=== PATIENT | male | born 1990 | race Caucasian/White ===

== ENCOUNTER 2017-04-02 22:38 | Observation (INO) | payer SELFPAY ==
[~2017-04-02] VITALS: Ht 180.3 cm; Wt 90.0 kg
--- NOTE | ~2017-04-02 | EC ---
PATIENT:SHONDA FINN DATE OF SERVICE: 04/03/17 SEX: M MEDICAL RECORD: [id number] DATE OF : [birth year] LOCATION:D.M2 D.212 AGE OF PATIENT: 26 ADMISSION DATE: 04/03/17 REFERRING PHYSICIAN: INTERPRETING PHYSICIAN: LUZ ORELLANA MD ECHOCARDIOGRAM REPORT ECHO CHARGES 4 ECHO COMPLETE CLINICAL DIAGNOSIS: CHEST PAIN ECHOCARDIOGRAPHIC MEASUREMENTS (adult normal given) AC root (d.<3.7cm) 3.6 LV Septum d (<1.2 cm> 1.3 Valve Excursion 2.3 LV Septum (systole) 1.5 Left Atria (s.<4.0cm> 3.6 LVPW d(<1.2cm) 1.5 RV (d.<2.3cm) 4.3 LVPW (sytole) 1.9 LV diastole(<5.6CM) 4.0 MV E-F(>70mm/sec) LV systole 2.5 LVOT Diameter 2.3 MV exc.(>10mm) 2.0 Est.ejection fraction (50-75%) Pericardial Effusion N DOPPLER: LVIT A 55.0 E 88.0 LA RVSP 23 LVOT 85 AOP1/2T Asc. Ao 106 RVOT 71 RA PA 120 AV Gradient Peak 4.49 AV Mean 2.51 AV Area 3.5 MV Gradient Peak 5.05 MV Mean 1.40 MV Area COMMENTS: Traffic Recorder: Chan MILLER [employer] Repairer:Mona Orellana TAPE# PACS DATE OF SERVICE: 04/03/2017 FINDINGS: 1. Left ventricular chamber size is within normal limits. Left ventricular systolic function is normal. Overall ejection fraction estimated at 60%. 2. Left atrium is within normal limits at 3.6 cm. Right atrium and right ventricular chamber sizes are mildly dilated. 3. Valvular structures have normal structure and motion. 4. Doppler interrogation reveals trace mitral regurgitation, mild tricuspid regurgitation, no other valvular insufficiency or stenosis and pulmonary ECHOCARDIOGRAM REPORT [id number] SHONDA FINN systolic pressure is normal, estimated at 23 mmHg. 5. No evidence of pericardial effusion or left ventricular thrombus. TRANSINT:[id number] Voice Confirmation ID: [id number] DOCUMENT ID: [id number] LUZ ORELLANA MD CC: [id number] DICTATION DATE: 04/03/17 1216 [employer] REPRESENTATIVE: 04/04/17 0037 DIS IN 04/03/17 [facility] [address] [place] [address]
[2017-04-02 23:46] LABS: BASOPHILS 0.1 % (0-2); EOSINOPHILS 3.2 % (0-7); HEMATOCRIT 44.5 % (42.0-54.0); IMMATURE GRANULOCYTES 0.2 % (0-5); LYMPHOCYTES 32.7 % (15-50); MCH 31.1 pg (26.0-34.0); MCHC 33.7 g/dL (31.0-37.0); MCV 92.1 fL (80.0-100.0); MEAN PLATELET VOLUME 10.4 fL (7.4-10.4); MONOCYTES 6.4 % (2-11); NEUTROPHILS 57.4 % (40-80); PLATELET COUNT 241 10x3/uL (130-400); RBC 4.83 10x6/uL (4.20-6.10); WBC 10.5 10x3/uL (4.8-10.8)
[2017-04-03] LABS: ALBUMIN 4.2 g/dL (3.4-5.0); ALKALINE PHOSPHATASE 79 U/L (46-116); ALT (SGPT) 27 U/L (10-68); CALC OSMOLALITY 289 mosm/kg (275-300); CALCIUM 8.9 mg/dL (8.5-10.1); CARBON DIOXIDE 31.9 mmol/L (21.0-32.0); CHLORIDE - SERUM 105 mmol/L (98-107); CREATININE - SERUM 1.3 mg/dL (0.6-1.3); GLUCOSE 116 mg/dL (74-106); PROTEIN - SERUM 7.5 g/dL (6.4-8.2); SODIUM 144 mmol/L (136-145); UREA NITROGEN 17 mg/dL (7-18); eGFR NON AFRICAN AMERICAN 71 mL/min (90-120)
[2017-04-03 00:03] LABS: CREATINE KINASE 66 UL (21-232); TROPONIN-I < 0.017 ng/mL (0.000-0.060)
--- NOTE | 2017-04-03 02:20 | NUR ---
RECEIVED PT TO ROOM 2122 ALERT O X3. ASSESS AND HISTORY COMPLETE. MEDS REVIEWED AND UPDATED MED REC FOR MD REVIEW IN AM. PT DENIES CP OR SOB AT THIS TIME.
[2017-04-03] MEDS ORDERED: AMOXICILLIN875 MG PO (02:26)
[2017-04-03] MEDS ORDERED: BUSPAR 15 MG TA15 MG PO (02:26)
[2017-04-03] MEDS ORDERED: OMEPRAZOLE20 M1 PO (02:27)
[2017-04-03 02:31] VITALS: Ht 180.3 cm; Wt 90.0 kg
[2017-04-03 04:01] VITALS: BP 122/67
[2017-04-03 05:11] LABS: CKMB 0.4 U/L (0.0-3.6); CREATINE KINASE 65 UL (21-232)
[2017-04-03 05:12] LABS: TROPONIN-I < 0.017 ng/mL (0.000-0.060)
--- NOTE | 2017-04-03 05:25 | NUR ---
RESTING WELL WITH EYES CLOSED, CONT TO MONITOR.
--- NOTE | 2017-04-03 07:31 | NUR ---
ASSESSMENT DONE. DENIES NEEDS.
[2017-04-03 08:26] VITALS: BP 119/76
--- NOTE | 2017-04-03 09:31 | NUR ---
AMPARO NEEDS AT THIS TIME. CALL LIGHT IN REACH. WILL MONITOR.
[2017-04-03 11:12] LABS: CKMB 0.4 U/L (0.0-3.6); CREATINE KINASE 63 UL (21-232)
[2017-04-03 11:15] LABS: TROPONIN-I < 0.017 ng/mL (0.000-0.060)
[2017-04-03] MEDS ORDERED: PROTONIX20 MG PO (14:36)
--- NOTE | 2017-04-03 16:11 | NUR ---
DC GIVEN TO PT
--- NOTE | 2017-04-03 17:12 | NUR ---
DC HOME PER PERSONAL CAR
== END 2017-04-03 17:12 | disposition home or self-care (01) ==
LOC: D.ER 22:38 → D.M2 04-03 01:20 → OBSVTIME 04-03 01:20 → D.M2 04-03 01:20
PROVIDERS: Family Medicine; ADMIT Family Medicine
DX: R07.89 Other chest pain (principal); R00.2 Palpitations; K21.9 Gastro-esophageal reflux disease without esophagitis; I10 Essential (primary) hypertension; R10.13 Epigastric pain; Z87.891 Personal history of nicotine dependence

== ENCOUNTER 2017-05-17 03:43 | Emergency (ER) | payer MEDICAID ==
[2017-04-03 02:31] VITALS: BMI 27.6
[~2017-05-17 03:43] MED LIST: AMOXICILLIN875 MG PO; BUSPAR 15 MG TA15 MG PO; OMEPRAZOLE20 M1 PO; PROTONIX20 MG PO
[2017-05-17 04:17] LABS: APPEARANCE CLEAR (CLEAR); BILIRUBIN NEGATIVE (NEGATIVE); COLOR YELLOW (YELLOW); GLUCOSE NEGATIVE (NEGATIVE); KETONE NEGATIVE (NEGATIVE); LEUKOCYTE ESTERASE NEGATIVE (NEGATIVE); NITRITE NEGATIVE (NEGATIVE); PROTEIN NEGATIVE (NEGATIVE); SPECIFIC GRAVITY 1.025 (1.005-1.020); UROBILINOGEN NORMAL (NORMAL)
[2017-05-17 04:18] LABS: BACTERIA FEW /hpf (NONE SEEN); EPITHELIAL CELLS 0-5 /hpf (0-5); RED CELLS - URINE 0-5 /hpf (0-5); WHITE CELLS - URINE 0-5 /hpf (0-5)
[2017-05-17 04:29] LABS: BASOPHILS 0.3 % (0-2); HEMATOCRIT 40.4 % (42.0-54.0); HEMOGLOBIN 13.3 g/dL (13.5-17.5); IMMATURE GRANULOCYTES 0.1 % (0-5); LYMPHOCYTES 34.6 % (15-50); MCH 30.2 pg (26.0-34.0); MCHC 32.9 g/dL (31.0-37.0); MCV 91.8 fL (80.0-100.0); MONOCYTES 6.1 % (2-11); NEUTROPHILS 53.9 % (40-80); PLATELET COUNT 189 10x3/uL (130-400); RDW 12.1 % (11.5-14.5)
[2017-05-17 04:44] LABS: ALBUMIN 3.6 g/dL (3.4-5.0); ANION GAP 11.2 mmol/L (8-16); BILIRUBIN - TOTAL 0.26 mg/dL (0.2-1.3); CALCIUM 8.9 mg/dL (8.5-10.1); CARBON DIOXIDE 27.3 mmol/L (21.0-32.0); CREATININE - SERUM 1.3 mg/dL (0.6-1.3); POTASSIUM - SERUM 3.5 mmol/L (3.5-5.1); PROTEIN - SERUM 6.8 g/dL (6.4-8.2)
== END 2017-05-17 05:15 | disposition home or self-care (01) ==
LOC: D.ER 03:43
PROVIDERS: Emergency Medicine
DX: K29.00 Acute gastritis without bleeding (principal); R11.10 Vomiting, unspecified; F41.9 Anxiety disorder, unspecified; K21.9 Gastro-esophageal reflux disease without esophagitis

== ENCOUNTER 2017-07-25 03:45 | Emergency (ER) | payer BC, MEDICAID ==
[2017-04-03 02:31] VITALS: BMI 27.6
== END 2017-07-25 05:40 | disposition home or self-care (01) ==
LOC: D.ER 03:45
DX: R09.89 Other specified symptoms and signs involving the circulatory and respiratory systems (principal); K21.9 Gastro-esophageal reflux disease without esophagitis

== ENCOUNTER → 2017-09-05 08:59 | Outpatient (CLI) | payer MEDICAID, BC ==
[2017-04-03 02:31] VITALS: BMI 27.6
== END | disposition home or self-care (01) ==
LOC: D.US 08-31 10:30
DX: R10.12 Left upper quadrant pain (principal); R11.0 Nausea

== ENCOUNTER → 2017-09-26 07:23 | Outpatient (CLI) | payer BC, MEDICAID ==
[2017-04-03 02:31] VITALS: BMI 27.6
== END | disposition home or self-care (01) ==
LOC: D.NM 09-18 08:00
DX: R10.9 Unspecified abdominal pain (principal)

== ENCOUNTER 2017-10-13 06:39 | Emergency (ER) | payer MEDICAID ==
[2017-04-03 02:31] VITALS: BMI 27.6
[2017-10-13 07:12] LABS: BASOPHILS 0.3 % (0-2); EOSINOPHILS 4.7 % (0-7); HEMATOCRIT 43.6 % (42.0-54.0); HEMOGLOBIN 14.8 g/dL (13.5-17.5); IMMATURE GRANULOCYTES 0.3 % (0-5); LYMPHOCYTES 34.9 % (15-50); MCH 30.6 pg (26.0-34.0); MCHC 33.9 g/dL (31.0-37.0); MCV 90.1 fL (80.0-100.0); MEAN PLATELET VOLUME 10.4 fL (7.4-10.4); MONOCYTES 7.3 % (2-11); NEUTROPHILS 52.5 % (40-80); PLATELET COUNT 224 10x3/uL (130-400); RBC 4.84 10x6/uL (4.20-6.10); WBC 6.4 10x3/uL (4.8-10.8)
[2017-10-13 07:15] LABS: APPEARANCE CLEAR (CLEAR); BILIRUBIN NEGATIVE (NEGATIVE); COLOR YELLOW (YELLOW); GLUCOSE NEGATIVE (NEGATIVE); KETONE NEGATIVE (NEGATIVE); NITRITE NEGATIVE (NEGATIVE); PH 5.5 (5.0-6.0); PROTEIN NEGATIVE (NEGATIVE); UROBILINOGEN NORMAL (NORMAL)
[2017-10-13 07:20] LABS: AMORPHOUS SEDIMENT <1+ /lpf (NONE SEEN); BACTERIA MODERATE /hpf (NONE SEEN); EPITHELIAL CELLS RARE /hpf (0-5); GRANULAR CAST RARE /lpf (NONE SEEN); HYALINE CAST OCC /lpf (NONE SEEN); MUCUS >1+ /lpf (NONE SEEN); RED CELLS - URINE 0-5 /hpf (0-5); WHITE CELLS - URINE OCC /hpf (0-5)
[2017-10-13 07:31] LABS: UDS - AMPHET NEGATIVE QUAL (NEGATIVE); UDS - BARB NEGATIVE QUAL (NEGATIVE); UDS - BENZO NEGATIVE QUAL (NEGATIVE); UDS - COCAINE NEGATIVE QUAL (NEGATIVE); UDS - OPIATE NEGATIVE QUAL (NEGATIVE); UDS - PCP NEGATIVE QUAL (NEGATIVE); UDS - THC NEGATIVE QUAL (NEGATIVE)
[2017-10-13 07:36] LABS: ALBUMIN 4.2 g/dL (3.4-5.0); ANION GAP 14.5 mmol/L (8-16); BILIRUBIN - TOTAL 0.22 mg/dL (0.2-1.3); CARBON DIOXIDE 28.5 mmol/L (21.0-32.0); CREATININE - SERUM 1.4 mg/dL (0.6-1.3); PROTEIN - SERUM 7.9 g/dL (6.4-8.2)
== END 2017-10-13 10:05 | disposition home or self-care (01) ==
LOC: D.ER 06:39
PROVIDERS: Emergency Medicine
DX: R10.9 Unspecified abdominal pain (principal); S29.011A Strain of muscle and tendon of front wall of thorax, initial encounter; X58.XXXA Exposure to other specified factors, initial encounter; Y93.89 Activity, other specified; Y92.012 Bathroom of single-family (private) house as the place of occurrence of the external cause; K59.00 Constipation, unspecified

== ENCOUNTER 2017-11-07 22:09 | Emergency (ER) | payer MEDICAID ==
[2017-04-03 02:31] VITALS: BMI 27.6
== END 2017-11-07 23:43 | disposition home or self-care (01) ==
LOC: D.ER 22:09
DX: G89.18 Other acute postprocedural pain (principal); K21.9 Gastro-esophageal reflux disease without esophagitis

== ENCOUNTER 2018-01-22 20:52 | Emergency (ER) | payer BC, MEDICAID ==
[2017-04-03 02:31] VITALS: BMI 27.6
[2018-01-22 21:26] LABS: BASOPHILS 0.2 % (0-2); EOSINOPHILS 3.4 % (0-7); HEMATOCRIT 43.7 % (42.0-54.0); IMMATURE GRANULOCYTES 0.2 % (0-5); LYMPHOCYTES 32.2 % (15-50); MCH 30.5 pg (26.0-34.0); MCHC 34.3 g/dL (31.0-37.0); MEAN PLATELET VOLUME 10.5 fL (7.4-10.4); MONOCYTES 6.2 % (2-11); NEUTROPHILS 57.8 % (40-80); PLATELET COUNT 213 10x3/uL (130-400); RBC 4.91 10x6/uL (4.20-6.10); RDW 12.7 % (11.5-14.5); WBC 8.3 10x3/uL (4.8-10.8)
[2018-01-22 21:37] LABS: ALBUMIN 4.3 g/dL (3.4-5.0); ANION GAP 11.8 mmol/L (8-16); BILIRUBIN - TOTAL 0.43 mg/dL (0.2-1.3); CALCIUM 9.3 mg/dL (8.5-10.1); CARBON DIOXIDE 31.2 mmol/L (21.0-32.0); CREATININE - SERUM 1.4 mg/dL (0.6-1.3); PROTEIN - SERUM 7.9 g/dL (6.4-8.2)
[2018-01-23 01:28] LABS: APPEARANCE CLOUDY (CLEAR); BILIRUBIN NEGATIVE (NEGATIVE); COLOR YELLOW (YELLOW); GLUCOSE NEGATIVE (NEGATIVE); KETONE NEGATIVE (NEGATIVE); NITRITE NEGATIVE (NEGATIVE); PROTEIN NEGATIVE (NEGATIVE); UROBILINOGEN NORMAL (NORMAL)
[2018-01-23 01:29] LABS: BACTERIA FEW /hpf (NONE SEEN); EPITHELIAL CELLS 0-5 /hpf (0-5); RED CELLS - URINE 0-5 /hpf (0-5); WHITE CELLS - URINE 0-5 /hpf (0-5)
[2018-01-23 01:30] LABS: AMORPHOUS SEDIMENT >1+ /lpf (NONE SEEN)
== END 2018-01-23 03:13 | disposition home or self-care (01) ==
LOC: D.ER 20:52
PROVIDERS: Family Medicine
DX: R07.81 Pleurodynia (principal); K21.9 Gastro-esophageal reflux disease without esophagitis; F17.200 Nicotine dependence, unspecified, uncomplicated